=== PATIENT | male | born 1980 | race Two or more races ===

== ENCOUNTER 2022-03-10 21:43 | Emergency (ER) | payer OTHER ==
[~2022-03-10] VITALS: Ht 172.7 cm; Wt 85.5 kg
[2022-03-10 23:39] LABS: BASOPHILS % (AUTO) 1.6 % (0.0-2.0); EOSINOPHILS % (AUTO) 2.1 % (1.0-6.0); HEMATOCRIT 43.9 % (41-53); LYMPHOCYTES # (AUTO) 1.2 K/uL (1.0-4.8); LYMPHOCYTES % (AUTO) 25.8 % (22.0-44.0); MEAN CORPUSCULAR HEMOGLOBIN 34.5 pg (26.0-34.0); MEAN CORPUSCULAR HGB CONC 34.2 G/dL (31.0-37.0); MEAN CORPUSCULAR VOLUME 101 fL (80-100); MONOCYTES # (AUTO) 0.4 K/uL (0.1-1.0); MONOCYTES % (AUTO) 8.8 % (2.0-9.0); NEUTROPHILS # (AUTO) 2.9 K/uL (1.8-7.7); NEUTROPHILS % (AUTO) 61.7 % (40.0-70.0); PLATELET COUNT (AUTO) 283 K/uL (150-450); RED BLOOD CELL COUNT(AUTO) 4.35 MIL/uL (4.50-5.90); RED CELL DISTRIBUTION WIDTH 13.2 % (11.5-14.5)
[2022-03-10 23:47] LABS: ANION GAP 14 mmol/L (8-16); CALCIUM, TOTAL 8.9 mg/dL (8.8-10.5); CARBON DIOXIDE 21 mmol/L (22-29); CHLORIDE 104 mmol/L (98-107); CREATININE 0.98 mg/dL (0.60-1.30); GLUCOSE,RANDOM 112 mg/dL (70-110); POTASSIUM 3.1 mmol/L (3.5-5.1); SODIUM SERUM 139 mmol/L (136-145); UREA NITROGEN, BLOOD 10 mg/dL (7-18)
[2022-03-10 23:51] LABS: GLOMERULAR FILTR. RATE CALC > 60 mL/min (>60)
[2022-03-10 23:55] LABS: ALANINE AMINOTRANSFERASE 105 U/L (12-78); ALBUMIN 3.7 g/dL (3.4-5.0); ALKALINE PHOSPHATASE 83 U/L (46-116); ASPARTATE AMINOTRANSFERASE 95 U/L (15-37); BILIRUBIN,TOTAL 0.3 mg/dL (0.1-1.0); TOTAL PROTEIN, SERUM 7.3 g/dL (6.4-8.2)
[2022-03-11 00:27] LABS: COVID AG,FIA SOURCE NASOPHARYNGEAL
[2022-03-11 00:36] LABS: AMPHET/METH SCREEN,URINE NEGATIVE (NEGATIVE); BARBITURATE SCREEN, URINE NEGATIVE (NEGATIVE); BENZODIAZEPINES SCREEN,URINE POSITIVE (NEGATIVE); CANNABINOID SCREEN,URINE NEGATIVE (NEGATIVE); COCAINE SCREEN,URINE NEGATIVE (NEGATIVE); METHADONE SCREEN, URINE NEGATIVE (NEGATIVE); OPIATE SCREEN,URINE NEGATIVE (NEGATIVE)
[2022-03-11 00:37] LABS: PHENCYCLIDINE SCREEN,URINE NEGATIVE (NEGATIVE)
[2022-03-11] MEDS ORDERED: LORazepam 1 MG TABLET PO ONE (07:15)
[2022-03-11] MEDS ORDERED: ChlordiazePOXIDE HCL 25 MG CAPSULE PO ONE (09:00)
[2022-03-11 12:15] VITALS: BP 138/91
== END 2022-03-11 13:06 | disposition home or self-care (01) ==
LOC: EMS 21:47
DX: R41.82 Altered mental status, unspecified (principal); F10.129 Alcohol abuse with intoxication, unspecified; R45.1 Restlessness and agitation; F17.210 Nicotine dependence, cigarettes, uncomplicated; Z20.822 Contact with and (suspected) exposure to COVID-19
CPT/HCPCS: 99291; 87426; 80053; 85025; 36415; 80307; G0480

== ENCOUNTER 2022-08-10 10:48 | Inpatient (IN) | payer MEDICAID, OTHER ==
[~2022-08-10] VITALS: Ht 172.7 cm; Wt 80.7 kg
[2022-08-10 11:39] LABS: BASOPHILS % (AUTO) 0.7 % (0.0-2.0); EOSINOPHILS % (AUTO) 0.7 % (1.0-6.0); HEMATOCRIT 45.5 % (41-53); HEMOGLOBIN 15.2 g/dL (13.5-17.5); LYMPHOCYTES # (AUTO) 1.5 K/uL (1.0-4.8); LYMPHOCYTES % (AUTO) 13.6 % (22.0-44.0); MEAN CORPUSCULAR HEMOGLOBIN 33.7 pg (26.0-34.0); MEAN CORPUSCULAR HGB CONC 33.4 G/dL (31.0-37.0); MEAN CORPUSCULAR VOLUME 101 fL (80-100); MONOCYTES # (AUTO) 0.6 K/uL (0.1-1.0); MONOCYTES % (AUTO) 5.2 % (2.0-9.0); NEUTROPHILS # (AUTO) 8.8 K/uL (1.8-7.7); NEUTROPHILS % (AUTO) 79.8 % (40.0-70.0); PLATELET COUNT (AUTO) 302 K/uL (150-450); RED BLOOD CELL COUNT(AUTO) 4.51 MIL/uL (4.50-5.90); RED CELL DISTRIBUTION WIDTH 15.1 % (11.5-14.5)
[2022-08-10 11:48] LABS: ANION GAP 12 mmol/L (8-16); CALCIUM, TOTAL 8.9 mg/dL (8.8-10.5); CARBON DIOXIDE 23 mmol/L (22-29); CHLORIDE 102 mmol/L (98-107); CREATININE 1.11 mg/dL (0.60-1.30); GLOMERULAR FILTR. RATE CALC > 60 mL/min (>60); GLUCOSE,RANDOM 155 mg/dL (70-110); POTASSIUM 3.3 mmol/L (3.5-5.1); SODIUM SERUM 137 mmol/L (136-145)
[2022-08-10 11:50] LABS: AMPHET/METH SCREEN,URINE POSITIVE (NEGATIVE); BARBITURATE SCREEN, URINE NEGATIVE (NEGATIVE); BENZODIAZEPINES SCREEN,URINE NEGATIVE (NEGATIVE); CANNABINOID SCREEN,URINE NEGATIVE (NEGATIVE); COCAINE SCREEN,URINE NEGATIVE (NEGATIVE); METHADONE SCREEN, URINE NEGATIVE (NEGATIVE); OPIATE SCREEN,URINE NEGATIVE (NEGATIVE); PHENCYCLIDINE SCREEN,URINE NEGATIVE (NEGATIVE)
[2022-08-10 11:54] LABS: ALANINE AMINOTRANSFERASE 31 U/L (12-78); ALKALINE PHOSPHATASE 87 U/L (46-116); ASPARTATE AMINOTRANSFERASE 45 U/L (15-37); BILIRUBIN,TOTAL 0.6 mg/dL (0.1-1.0)
[2022-08-10 12:03] LABS: COVID AG,FIA SOURCE NASAL SWAB
[2022-08-10] MEDS ORDERED: ZOLPIDEM TARTRATE 10 MG TABLET PO PRN (13:00)
[2022-08-10] MEDS ORDERED: OLANZapine 5 MG RAPDIS TABLET PO PRN (13:00)
[2022-08-10] MEDS ORDERED: LORazepam 2 MG TABLET PO PRN (13:00)
[2022-08-10] MEDS ORDERED: ACETAMINOPHEN 325 MG TABLET PO PRN (22:45)
[2022-08-10] MEDS ORDERED: CYANOCOBALAMIN 1,000 MCG/ML VIAL IM ONE (22:45)
[2022-08-10] MEDS ORDERED: GuaiFENesin/D-METHORPHAN [SUGAR-FREE] 200-20MG/10 ML SYRUP UDCUP PO PRN (22:45)
[2022-08-10] MEDS ORDERED: DIAZEPAM 10 MG TABLET PO PRN (22:45)
[2022-08-10] MEDS ORDERED: HydrOXYzine PAMOATE 50 MG CAPSULE PO PRN (22:45)
[2022-08-10] MEDS ORDERED: TUBERCULIN, PURIFIED PROTEIN DERIVATIVE 5 TU/0.1 ML SYRINGE ID ONE (22:45)
[2022-08-10] MEDS ORDERED: MAGNESIUM HYDROXIDE SUSPENSION 30 ML UDCUP PO PRN (22:45)
[2022-08-10] MEDS ORDERED: LOPERAMIDE HCL 2 MG CAPSULE PO PRN ×2 (22:45)
[2022-08-10] MEDS ORDERED: PROMETHAZINE HCL 25 MG TABLET PO PRN (22:45)
[2022-08-10] MEDS ORDERED: MAG HYDROX/AL HYDROX/SIMETH ES 30 ML SUSPENSION UDCUP PO PRN (22:45)
[2022-08-10 23:30] VITALS: BP 130/80
[2022-08-11] VITALS (10 sets, daily range): BP systolic 125–150; BP diastolic 78–95
[2022-08-11] MEDS ORDERED: DIAZEPAM 10 MG TABLET PO PRN (07:00)
[2022-08-11] MEDS: NICOTINE 21 MG/24 HOUR PATCH TD SCH (08:22)
[2022-08-11] MEDS: THIAMINE 100 MG TABLET PO SCH ×2 (08:23→16:23)
[2022-08-11] MEDS: MULTIVITAMINS WITH MINERALS, THERAPEUTIC TABLET PO SCH (08:23)
[2022-08-11] MEDS: OMEGA-3/DHA/EPA/FISH OIL 1,000 MG CAPSULE PO SCH (08:23)
[2022-08-11] MEDS: FOLIC ACID 1 MG TABLET PO SCH (08:24)
[2022-08-11] MEDS: NALTREXONE HCL 50 MG TABLET PO SCH (08:24)
[2022-08-11] MEDS: DIAZEPAM 10 MG TABLET PO SCH ×4 (08:33→21:11)
[2022-08-11] MEDS ORDERED: POTASSIUM CHLORIDE 20 MEQ ER TABLET PO ONE ×2 (09:00→20:00)
[2022-08-11 10:29] LABS: HEMOGLOBIN A1C 5.5 % (3.8-5.6)
[2022-08-11 10:41] LABS: CHOL/HDL RATIO 2.7 (4.2-7.3); FREE T4 (FREE THYROXINE) 0.86 ng/dL (0.76-1.46); THYROID STIMULATING HORMONE 0.79 uIU/mL (0.36-3.74)
[2022-08-11] MEDS: METOPROLOL TARTRATE 25 MG TABLET PO SCH (17:30)
[2022-08-11] MEDS: MELATONIN 5 MG TABLET PO SCH (21:11)
[2022-08-11] MEDS: MIRTAZAPINE 15 MG TABLET PO SCH (21:11)
[2022-08-12 06:31] LABS: ANION GAP 8 mmol/L (8-16); CALCIUM, TOTAL 9.2 mg/dL (8.8-10.5); CARBON DIOXIDE 26 mmol/L (22-29); CHLORIDE 100 mmol/L (98-107); CREATININE 0.88 mg/dL (0.60-1.30); GLOMERULAR FILTR. RATE CALC > 60 mL/min (>60); GLUCOSE,RANDOM 103 mg/dL (70-110); SODIUM SERUM 134 mmol/L (136-145)
[2022-08-12] MEDS: NALTREXONE HCL 50 MG TABLET PO SCH (08:49)
[2022-08-12] MEDS: METOPROLOL TARTRATE 25 MG TABLET PO SCH ×2 (08:49→17:52)
[2022-08-12] MEDS: FOLIC ACID 1 MG TABLET PO SCH (09:00)
[2022-08-12] MEDS: DIAZEPAM 10 MG TABLET PO SCH ×4 (09:00→21:05)
[2022-08-12] MEDS: MULTIVITAMINS WITH MINERALS, THERAPEUTIC TABLET PO SCH (09:00)
[2022-08-12] MEDS: OMEGA-3/DHA/EPA/FISH OIL 1,000 MG CAPSULE PO SCH (09:00)
[2022-08-12] MEDS: THIAMINE 100 MG TABLET PO SCH ×2 (09:00→17:52)
[2022-08-12] MEDS: NICOTINE 21 MG/24 HOUR PATCH TD SCH (09:01)
[2022-08-12 09:59] VITALS: BP_SYST 123; BP_SYST 127; BP_DIAS 83
[2022-08-12 20:13] VITALS: BP 123/82
[2022-08-12] MEDS ORDERED: MELA5TAB40 PO (21:00)
[2022-08-12] MEDS ORDERED: NALT50TA PO (21:00)
[2022-08-12] MEDS ORDERED: MIRT-89 PO (21:00)
[2022-08-12] MEDS ORDERED: OMEG-135 PO (21:00)
[2022-08-12] MEDS: MELATONIN 5 MG TABLET PO SCH (21:05)
[2022-08-12] MEDS: MIRTAZAPINE 15 MG TABLET PO SCH (21:05)
[2022-08-13] MEDS ORDERED: DIAZEPAM 5 MG TABLET PO PRN (07:00)
[2022-08-13] MEDS: NICOTINE 21 MG/24 HOUR PATCH TD SCH (07:43)
[2022-08-13] MEDS: DIAZEPAM 5 MG TABLET PO SCH ×4 (07:43→16:21)
[2022-08-13] MEDS: OMEGA-3/DHA/EPA/FISH OIL 1,000 MG CAPSULE PO SCH (07:47)
[2022-08-13] MEDS: NALTREXONE HCL 50 MG TABLET PO SCH (07:47)
[2022-08-13] MEDS: METOPROLOL TARTRATE 25 MG TABLET PO SCH ×2 (07:47→16:21)
[2022-08-13] MEDS: THIAMINE 100 MG TABLET PO SCH ×2 (07:47→16:21)
[2022-08-13] MEDS: MULTIVITAMINS WITH MINERALS, THERAPEUTIC TABLET PO SCH (07:47)
[2022-08-13] MEDS: FOLIC ACID 1 MG TABLET PO SCH (07:47)
[2022-08-13 08:30] VITALS: BP 121/87
[2022-08-14] MEDS ORDERED: DIAZEPAM 5 MG TABLET PO PRN (07:00)
== END 2022-08-13 10:45 | disposition home or self-care (01) | DRG 751 ==
LOC: EMS 10:52 → 3EC 20:37
PROVIDERS: ADMIT Psychiatry & Neurology Psychiatry; ATTEND Psychiatry & Neurology Psychiatry
DX: F33.2 Major depressive disorder, recurrent severe without psychotic features (principal); R45.851 Suicidal ideations; J44.9 Chronic obstructive pulmonary disease, unspecified; S51.811A Laceration without foreign body of right forearm, initial encounter; X58.XXXA Exposure to other specified factors, initial encounter; Z20.822 Contact with and (suspected) exposure to COVID-19; F10.20 Alcohol dependence, uncomplicated; F12.20 Cannabis dependence, uncomplicated; Y93.89 Activity, other specified; Y92.89 Other specified places as the place of occurrence of the external cause; Y99.8 Other external cause status; Z87.891 Personal history of nicotine dependence
CPT/HCPCS: 80048; 80053; 80061; 80307; 83036; 84439; 84443; 85025; 86592; 99285; G0480; J3420; Q9967